=== PATIENT | female | born 1985 | race Caucasian/White ===

== ENCOUNTER 2017-05-29 03:57 | Emergency (ER) | payer MEDICAID ==
[2017-05-29] MEDS: METHYLPREDNISOLONE 125 MG INJ IM (08:31)
[2017-05-29] MEDS: ALBUTEROL 0.083% (NEB) 2.5 MG/3 ML AMP HHN (08:43)
[2017-05-29] MEDS: IPRATROPIUM (NEB) 0.5 MG/2.5 ML AMP HHN (08:43)
[2017-05-29] MEDS: DIPHENHYDRAMINE 50 MG CAP PO (09:07)
== END 2017-05-29 10:39 | disposition home or self-care (01) ==
LOC: FTE 03:57
DX: R21 Rash and other nonspecific skin eruption (principal); R06.02 Shortness of breath; R51 Headache; J45.901 Unspecified asthma with (acute) exacerbation; R11.2 Nausea with vomiting, unspecified
CPT/HCPCS: 70450; 71045; 93005; 94644; 96372; 99285-25

== ENCOUNTER 2017-12-31 10:03 | Emergency (ER) | payer MEDICAID ==
[2017-12-31] MEDS: KETOROLAC 30 MG INJ IM (11:18)
[2017-12-31] MEDS: DEXAMETHASONE 10 MG/ML 1 ML INJ IM (11:18)
[2017-12-31] MEDS: METHOCARBAMOL 750 MG TAB PO (11:19)
== END 2017-12-31 12:53 | disposition home or self-care (01) ==
LOC: FTE 10:03
DX: M54.5 Low back pain (principal); R51 Headache
CPT/HCPCS: 81025; 96372; 99284-25

== ENCOUNTER 2018-06-23 14:13 | Emergency (ER) | payer MEDICAID ==
[2018-06-23] MEDS: ONDANSETRON 4 MG INJ IV (16:42)
[2018-06-23] MEDS: SOD CHLORIDE 0.9% 1,000 ML IV (16:42)
[2018-06-23 16:50] LABS: ADD MAN DIFF? NO
[2018-06-23] MEDS: KETOROLAC 30 MG INJ IV (16:55)
[2018-06-23 16:57] LABS: WHITE BLOOD COUNT 9.5 10^3/ul (4.8-10.8)
[2018-06-23 16:57] LABS: BASOPHILS % 0.3 % (0.0-2.0); EOSINOPHILS # 0.5 10^3/ul (0.0-0.5); EOSINOPHILS % 5.1 % (0.0-7.0); HEMATOCRIT 42.6 % (37.0-47.0); LYMPHOCYTES # 2.4 10^3/ul (0.8-2.9); LYMPHOCYTES % 25.6 % (15.0-51.0); MEAN CORPUSCULAR HEMOGLOBIN 27.2 pg (29.0-33.0); MEAN CORPUSCULAR HGB CONC 32.9 g/dl (32.0-37.0); MEAN CORPUSCULAR VOLUME 82.7 fl (82.0-101.0); MEAN PLATELET VOLUME 9.8 fl (7.4-10.4); MONOCYTE # 0.6 10^3/ul (0.3-0.9); MONOCYTES % 5.9 % (0.0-11.0); NEUTROPHILS % 62.7 % (39.0-77.0); PLATELET COUNT 382 10^3/UL (140-415); RED BLOOD COUNT 5.15 10^6/ul (4.20-5.40); RED CELL DISTRIBUTION WIDTH 12.6 % (11.5-14.5)
[2018-06-23] MEDS: PROCHLORPERAZINE 10 MG INJ IV (16:57)
[2018-06-23 17:35] LABS: ANION GAP 12 (5-13); BLOOD UREA NITROGEN 14 mg/dl (7-20); CALCIUM 9.6 mg/dl (8.4-10.2); CARBON DIOXIDE 24 mmol/L (21-31); CHLORIDE 104 mmol/L (97-110); CREATININE 0.81 mg/dl (0.44-1.00); Estimated GFR > 60 mL/min (>60); GLUCOSE 99 mg/dl (70-220); POTASSIUM 4.3 mmol/L (3.5-5.1); SODIUM 140 mmol/L (135-144)
== END 2018-06-23 18:03 | disposition home or self-care (01) ==
LOC: FTE 14:13
DX: G43.009 Migraine without aura, not intractable, without status migrainosus (principal)
CPT/HCPCS: 36415; 80048; 81025; 85025; 96361; 96374; 96375; 99284-25

== ENCOUNTER 2018-12-15 21:07 | Emergency (ER) | payer MEDICAID | END 2018-12-16 00:30 | disposition home or self-care (01) | LOC: FTE 21:07 | DX: S60.562A Insect bite (nonvenomous) of left hand, initial encounter (principal); S60.561A Insect bite (nonvenomous) of right hand, initial encounter; S80.862A Insect bite (nonvenomous), left lower leg, initial encounter; S80.861A Insect bite (nonvenomous), right lower leg, initial encounter; W57.XXXA Bitten or stung by nonvenomous insect and other nonvenomous arthropods, initial encounter; Y92.9 Unspecified place or not applicable | CPT/HCPCS: 99283; Z7502 ==